=== PATIENT | male | born 1960 | race Caucasian/White ===

== ENCOUNTER 2017-07-04 14:56 | Emergency (ER) | payer OTHER, BC ==
[~2017-07-04] VITALS: Ht 195.6 cm; Wt 130.6 kg
[~2017-07-04 14:56] MED LIST: CLOP75 PO; ENOX30I SQ; GLIP2.5ER PO; GLIP5 PO; Janumet 50-5001 EACH; LOSA25; METF500 PO; PRAV20 PO; Sotalol80 MG; WARF10 PO
[2017-07-04] MEDS ORDERED: XARELTO15 MG PO (18:28)
== END 2017-07-04 18:43 | disposition home or self-care (01) ==
LOC: ER 14:56
DX: I82.4Z1 Acute embolism and thrombosis of unspecified deep veins of right distal lower extremity (principal); E11.9 Type 2 diabetes mellitus without complications; Z79.899 Other long term (current) drug therapy; Z79.84 Long term (current) use of oral hypoglycemic drugs
CPT/HCPCS: 93971; 99284

== ENCOUNTER 2018-12-16 07:30 | Day surgery (SDC) | payer BC ==
[~2018-12-16 07:30] MED LIST changes: +D3-20002000 UNIT PO; +FISH OIL 1,4001 EACH PO; +GLIP10ER PO; +Hydrocodone-Ap1 EA20 PO; +JARDIANCE25 MG PO; +Janumet 50-1,01 EACH PO; +LOSARTAN POTAS100 MG PO; +Mobic15 MG PO; +PRAV20; +SOTALOL PO; +XARELTO15 MG PO
== END 2018-12-16 23:03 | disposition home or self-care (01) ==
LOC: WOUND 07:30
DX: E11.622 Type 2 diabetes mellitus with other skin ulcer (principal); L97.811 Non-pressure chronic ulcer of other part of right lower leg limited to breakdown of skin; L97.822 Non-pressure chronic ulcer of other part of left lower leg with fat layer exposed; Z79.84 Long term (current) use of oral hypoglycemic drugs
CPT/HCPCS: 87070; 87075; 87205; G0463

== ENCOUNTER 2018-12-23 00:22 | Day surgery (SDC) | payer BC | END 2018-12-23 23:07 | disposition home or self-care (01) | LOC: WOUND 00:22 | DX: L97.811 Non-pressure chronic ulcer of other part of right lower leg limited to breakdown of skin (principal); L97.822 Non-pressure chronic ulcer of other part of left lower leg with fat layer exposed | CPT/HCPCS: G0463 ==

== ENCOUNTER 2018-12-30 09:29 | Day surgery (SDC) | payer BC | END 2018-12-30 23:13 | disposition home or self-care (01) | LOC: WOUND 09:29 | DX: E11.622 Type 2 diabetes mellitus with other skin ulcer (principal); L97.811 Non-pressure chronic ulcer of other part of right lower leg limited to breakdown of skin; Z79.84 Long term (current) use of oral hypoglycemic drugs ==

== ENCOUNTER 2019-01-12 15:22 | Day surgery (SDC) | payer BC | END 2019-01-12 23:00 | disposition home or self-care (01) | LOC: WOUND 15:22 | DX: E11.622 Type 2 diabetes mellitus with other skin ulcer (principal); L97.812 Non-pressure chronic ulcer of other part of right lower leg with fat layer exposed; E11.40 Type 2 diabetes mellitus with diabetic neuropathy, unspecified; I48.91 Unspecified atrial fibrillation; G47.30 Sleep apnea, unspecified; I50.9 Heart failure, unspecified; I25.10 Atherosclerotic heart disease of native coronary artery without angina pectoris; I25.2 Old myocardial infarction; M10.9 Gout, unspecified; L93.0 Discoid lupus erythematosus; Z86.718 Personal history of other venous thrombosis and embolism; Z79.01 Long term (current) use of anticoagulants; Z79.84 Long term (current) use of oral hypoglycemic drugs | CPT/HCPCS: G0463 ==

== ENCOUNTER 2019-01-26 15:28 | Day surgery (SDC) | payer BC | END 2019-01-26 22:46 | disposition home or self-care (01) | LOC: WOUND 15:28 | DX: Z09 Encounter for follow-up examination after completed treatment for conditions other than malignant neoplasm (principal); Z87.2 Personal history of diseases of the skin and subcutaneous tissue; E11.9 Type 2 diabetes mellitus without complications; Z79.84 Long term (current) use of oral hypoglycemic drugs | CPT/HCPCS: G0463 ==

== ENCOUNTER 2019-07-28 00:18 | Day surgery (SDC) | payer BC | END 2019-07-28 23:09 | disposition home or self-care (01) | LOC: WOUND 00:18 | DX: E11.621 Type 2 diabetes mellitus with foot ulcer (principal); L97.522 Non-pressure chronic ulcer of other part of left foot with fat layer exposed; E78.5 Hyperlipidemia, unspecified; E11.40 Type 2 diabetes mellitus with diabetic neuropathy, unspecified; I50.9 Heart failure, unspecified; Z79.899 Other long term (current) drug therapy; Z79.84 Long term (current) use of oral hypoglycemic drugs | CPT/HCPCS: G0463 ==

== ENCOUNTER 2019-08-05 00:13 | Day surgery (SDC) | payer BC | END 2019-08-05 22:51 | disposition home or self-care (01) | LOC: WOUND 00:13 | DX: E11.621 Type 2 diabetes mellitus with foot ulcer (principal); L97.522 Non-pressure chronic ulcer of other part of left foot with fat layer exposed; I48.91 Unspecified atrial fibrillation; Z86.718 Personal history of other venous thrombosis and embolism ==

== ENCOUNTER 2019-08-11 00:12 | Day surgery (SDC) | payer BC | END 2019-08-11 22:42 | disposition home or self-care (01) | LOC: WOUND 00:12 | DX: E11.621 Type 2 diabetes mellitus with foot ulcer (principal); L97.522 Non-pressure chronic ulcer of other part of left foot with fat layer exposed; Z79.84 Long term (current) use of oral hypoglycemic drugs ==

== ENCOUNTER 2019-08-19 00:33 | Day surgery (SDC) | payer BC | END 2019-08-19 23:11 | disposition home or self-care (01) | LOC: WOUND 00:33 | DX: E11.621 Type 2 diabetes mellitus with foot ulcer (principal); L97.522 Non-pressure chronic ulcer of other part of left foot with fat layer exposed; I48.91 Unspecified atrial fibrillation; Z86.718 Personal history of other venous thrombosis and embolism ==

== ENCOUNTER 2019-09-23 00:02 | Day surgery (SDC) | payer BC | END 2019-09-23 22:37 | disposition home or self-care (01) | LOC: WOUND 00:02 | DX: E11.621 Type 2 diabetes mellitus with foot ulcer (principal); L97.522 Non-pressure chronic ulcer of other part of left foot with fat layer exposed; I48.91 Unspecified atrial fibrillation; Z86.718 Personal history of other venous thrombosis and embolism ==

== ENCOUNTER 2019-10-06 00:20 | Day surgery (SDC) | payer BC | END 2019-10-06 22:34 | disposition home or self-care (01) | LOC: WOUND 00:20 | DX: E11.621 Type 2 diabetes mellitus with foot ulcer (principal); L97.522 Non-pressure chronic ulcer of other part of left foot with fat layer exposed; Z79.84 Long term (current) use of oral hypoglycemic drugs ==

== ENCOUNTER 2019-10-14 00:16 | Day surgery (SDC) | payer BC | END 2019-10-14 22:34 | disposition home or self-care (01) | LOC: WOUND 00:16 | DX: E11.621 Type 2 diabetes mellitus with foot ulcer (principal); L97.522 Non-pressure chronic ulcer of other part of left foot with fat layer exposed ==

== ENCOUNTER 2019-10-18 00:40 | Day surgery (SDC) | payer BC | END 2019-10-18 22:35 | disposition home or self-care (01) | LOC: WOUND 00:40 | DX: E11.621 Type 2 diabetes mellitus with foot ulcer (principal); L97.522 Non-pressure chronic ulcer of other part of left foot with fat layer exposed; Z79.84 Long term (current) use of oral hypoglycemic drugs | CPT/HCPCS: G0463 ==

== ENCOUNTER 2019-11-07 00:19 | Day surgery (SDC) | payer BC | END 2019-11-07 22:45 | disposition home or self-care (01) | LOC: WOUND 00:19 | DX: E11.621 Type 2 diabetes mellitus with foot ulcer (principal); L97.522 Non-pressure chronic ulcer of other part of left foot with fat layer exposed; Z79.84 Long term (current) use of oral hypoglycemic drugs | CPT/HCPCS: G0463 ==

== ENCOUNTER 2019-12-09 01:12 | Day surgery (SDC) | payer BC | END 2019-12-09 22:52 | disposition home or self-care (01) | LOC: WOUND 01:12 | DX: E11.621 Type 2 diabetes mellitus with foot ulcer (principal); L97.522 Non-pressure chronic ulcer of other part of left foot with fat layer exposed; Z79.84 Long term (current) use of oral hypoglycemic drugs ==

== ENCOUNTER 2019-12-15 08:42 | Day surgery (SDC) | payer BC | END 2019-12-15 23:33 | disposition home or self-care (01) | LOC: WOUND 08:42 | DX: E11.621 Type 2 diabetes mellitus with foot ulcer (principal); L97.522 Non-pressure chronic ulcer of other part of left foot with fat layer exposed; E11.52 Type 2 diabetes mellitus with diabetic peripheral angiopathy with gangrene; I96 Gangrene, not elsewhere classified; I48.91 Unspecified atrial fibrillation; Z86.718 Personal history of other venous thrombosis and embolism; Z79.84 Long term (current) use of oral hypoglycemic drugs; Z79.1 Long term (current) use of non-steroidal anti-inflammatories (NSAID); Z79.899 Other long term (current) drug therapy ==

== ENCOUNTER 2019-12-22 08:43 | Day surgery (SDC) | payer BC | END 2019-12-22 23:10 | disposition home or self-care (01) | LOC: WOUND 08:43 | DX: E11.621 Type 2 diabetes mellitus with foot ulcer (principal); L97.522 Non-pressure chronic ulcer of other part of left foot with fat layer exposed; Z79.84 Long term (current) use of oral hypoglycemic drugs ==

== ENCOUNTER 2019-12-30 00:40 | Day surgery (SDC) | payer BC | END 2019-12-30 23:57 | disposition home or self-care (01) | LOC: WOUND 00:40 | DX: E11.621 Type 2 diabetes mellitus with foot ulcer (principal); L97.521 Non-pressure chronic ulcer of other part of left foot limited to breakdown of skin; E11.52 Type 2 diabetes mellitus with diabetic peripheral angiopathy with gangrene; I96 Gangrene, not elsewhere classified; E11.40 Type 2 diabetes mellitus with diabetic neuropathy, unspecified; I48.91 Unspecified atrial fibrillation; G47.30 Sleep apnea, unspecified; I49.9 Cardiac arrhythmia, unspecified; I50.9 Heart failure, unspecified; I25.10 Atherosclerotic heart disease of native coronary artery without angina pectoris; I25.2 Old myocardial infarction; M32.9 Systemic lupus erythematosus, unspecified; M10.9 Gout, unspecified; Z86.718 Personal history of other venous thrombosis and embolism; Z79.84 Long term (current) use of oral hypoglycemic drugs; Z79.899 Other long term (current) drug therapy ==

== ENCOUNTER 2020-01-20 01:06 | Day surgery (SDC) | payer BC | END 2020-01-20 23:12 | disposition home or self-care (01) | LOC: WOUND 01:06 | DX: E11.621 Type 2 diabetes mellitus with foot ulcer (principal); L97.522 Non-pressure chronic ulcer of other part of left foot with fat layer exposed; Z79.84 Long term (current) use of oral hypoglycemic drugs ==

== ENCOUNTER 2020-02-08 01:27 | Day surgery (SDC) | payer BC | END 2020-02-08 22:58 | disposition home or self-care (01) | LOC: WOUND 01:27 | DX: E11.621 Type 2 diabetes mellitus with foot ulcer (principal); L97.422 Non-pressure chronic ulcer of left heel and midfoot with fat layer exposed; L97.529 Non-pressure chronic ulcer of other part of left foot with unspecified severity; E11.52 Type 2 diabetes mellitus with diabetic peripheral angiopathy with gangrene; S90.425D Blister (nonthermal), left lesser toe(s), subsequent encounter; I96 Gangrene, not elsewhere classified; I48.91 Unspecified atrial fibrillation; Z79.84 Long term (current) use of oral hypoglycemic drugs; Z79.1 Long term (current) use of non-steroidal anti-inflammatories (NSAID); Z79.899 Other long term (current) drug therapy; Z86.718 Personal history of other venous thrombosis and embolism; X58.XXXD Exposure to other specified factors, subsequent encounter ==

== ENCOUNTER 2020-02-15 00:45 | Day surgery (SDC) | payer BC | END 2020-02-15 22:39 | disposition home or self-care (01) | LOC: WOUND 00:45 | DX: E11.621 Type 2 diabetes mellitus with foot ulcer (principal); L97.522 Non-pressure chronic ulcer of other part of left foot with fat layer exposed; S91.102D Unspecified open wound of left great toe without damage to nail, subsequent encounter; S91.105D Unspecified open wound of left lesser toe(s) without damage to nail, subsequent encounter; I48.91 Unspecified atrial fibrillation; Z86.718 Personal history of other venous thrombosis and embolism; X58.XXXD Exposure to other specified factors, subsequent encounter ==

== ENCOUNTER 2020-03-15 00:26 | Day surgery (SDC) | payer BC | END 2020-03-15 23:45 | disposition home or self-care (01) | LOC: WOUND 00:26 | DX: E11.621 Type 2 diabetes mellitus with foot ulcer (principal); L97.522 Non-pressure chronic ulcer of other part of left foot with fat layer exposed; I48.91 Unspecified atrial fibrillation; S91.105D Unspecified open wound of left lesser toe(s) without damage to nail, subsequent encounter; Z86.718 Personal history of other venous thrombosis and embolism; X58.XXXD Exposure to other specified factors, subsequent encounter | CPT/HCPCS: A9270 ==

== ENCOUNTER 2020-04-05 08:53 | Day surgery (SDC) | payer BC | END 2020-04-05 23:43 | disposition home or self-care (01) | LOC: WOUND 08:53 | DX: E11.621 Type 2 diabetes mellitus with foot ulcer (principal); E11.622 Type 2 diabetes mellitus with other skin ulcer; L97.522 Non-pressure chronic ulcer of other part of left foot with fat layer exposed; L97.912 Non-pressure chronic ulcer of unspecified part of right lower leg with fat layer exposed; I48.91 Unspecified atrial fibrillation | CPT/HCPCS: A9270 ==

== ENCOUNTER 2020-04-19 00:28 | Day surgery (SDC) | payer BC | END 2020-04-19 22:54 | disposition home or self-care (01) | LOC: WOUND 00:28 | DX: E11.621 Type 2 diabetes mellitus with foot ulcer (principal); L97.522 Non-pressure chronic ulcer of other part of left foot with fat layer exposed; L97.911 Non-pressure chronic ulcer of unspecified part of right lower leg limited to breakdown of skin; S91.105D Unspecified open wound of left lesser toe(s) without damage to nail, subsequent encounter; I48.91 Unspecified atrial fibrillation; Z86.718 Personal history of other venous thrombosis and embolism; X58.XXXD Exposure to other specified factors, subsequent encounter | CPT/HCPCS: A9270 ==

== ENCOUNTER 2020-05-03 00:23 | Day surgery (SDC) | payer BC | END 2020-05-03 23:31 | disposition home or self-care (01) | LOC: WOUND 00:23 | DX: E11.621 Type 2 diabetes mellitus with foot ulcer (principal); L97.522 Non-pressure chronic ulcer of other part of left foot with fat layer exposed; E11.622 Type 2 diabetes mellitus with other skin ulcer; L97.911 Non-pressure chronic ulcer of unspecified part of right lower leg limited to breakdown of skin; S91.105D Unspecified open wound of left lesser toe(s) without damage to nail, subsequent encounter; X58.XXXD Exposure to other specified factors, subsequent encounter | CPT/HCPCS: A9270 ==

== ENCOUNTER 2020-05-17 00:25 | Day surgery (SDC) | payer BC | END 2020-05-17 22:52 | disposition home or self-care (01) | LOC: WOUND 00:25 | DX: E11.621 Type 2 diabetes mellitus with foot ulcer (principal); L97.522 Non-pressure chronic ulcer of other part of left foot with fat layer exposed; L97.911 Non-pressure chronic ulcer of unspecified part of right lower leg limited to breakdown of skin; S91.105D Unspecified open wound of left lesser toe(s) without damage to nail, subsequent encounter; X58.XXXD Exposure to other specified factors, subsequent encounter | CPT/HCPCS: A9270 ==

== ENCOUNTER 2020-05-31 00:35 | Day surgery (SDC) | payer BC | END 2020-05-31 23:14 | disposition home or self-care (01) | LOC: WOUND 00:35 | DX: E11.621 Type 2 diabetes mellitus with foot ulcer (principal); L97.522 Non-pressure chronic ulcer of other part of left foot with fat layer exposed; L97.911 Non-pressure chronic ulcer of unspecified part of right lower leg limited to breakdown of skin; S91.105D Unspecified open wound of left lesser toe(s) without damage to nail, subsequent encounter; X58.XXXD Exposure to other specified factors, subsequent encounter; I48.91 Unspecified atrial fibrillation; Z86.718 Personal history of other venous thrombosis and embolism | CPT/HCPCS: 87071; 87075; 87077; 87147; 87186; 87205; A9270 ==

== ENCOUNTER 2020-06-12 01:27 | Day surgery (SDC) | payer BC | END 2020-06-12 22:39 | disposition home or self-care (01) | LOC: WOUND 01:27 | DX: E11.621 Type 2 diabetes mellitus with foot ulcer (principal); L97.522 Non-pressure chronic ulcer of other part of left foot with fat layer exposed; L97.811 Non-pressure chronic ulcer of other part of right lower leg limited to breakdown of skin; S91.105D Unspecified open wound of left lesser toe(s) without damage to nail, subsequent encounter; X58.XXXD Exposure to other specified factors, subsequent encounter | CPT/HCPCS: A9270 ==

== ENCOUNTER 2020-06-14 01:57 | Day surgery (SDC) | payer BC | END 2020-06-14 22:58 | disposition home or self-care (01) | LOC: WOUND 01:57 | DX: E11.621 Type 2 diabetes mellitus with foot ulcer (principal); L97.522 Non-pressure chronic ulcer of other part of left foot with fat layer exposed; I48.91 Unspecified atrial fibrillation; Z86.718 Personal history of other venous thrombosis and embolism ==

== ENCOUNTER 2020-06-21 00:20 | Day surgery (SDC) | payer BC | END 2020-06-21 22:38 | disposition home or self-care (01) | LOC: WOUND 00:20 | DX: E11.621 Type 2 diabetes mellitus with foot ulcer (principal); L97.522 Non-pressure chronic ulcer of other part of left foot with fat layer exposed; L97.911 Non-pressure chronic ulcer of unspecified part of right lower leg limited to breakdown of skin; S91.105D Unspecified open wound of left lesser toe(s) without damage to nail, subsequent encounter; X58.XXXD Exposure to other specified factors, subsequent encounter; I48.91 Unspecified atrial fibrillation; Z86.718 Personal history of other venous thrombosis and embolism | CPT/HCPCS: A9270 ==

== ENCOUNTER 2020-06-27 03:34 | Day surgery (SDC) | payer BC | END 2020-06-27 22:41 | disposition home or self-care (01) | LOC: WOUND 03:34 | DX: E11.621 Type 2 diabetes mellitus with foot ulcer (principal); L97.522 Non-pressure chronic ulcer of other part of left foot with fat layer exposed; L97.911 Non-pressure chronic ulcer of unspecified part of right lower leg limited to breakdown of skin; S91.105D Unspecified open wound of left lesser toe(s) without damage to nail, subsequent encounter; X58.XXXD Exposure to other specified factors, subsequent encounter; I48.91 Unspecified atrial fibrillation; Z86.718 Personal history of other venous thrombosis and embolism | CPT/HCPCS: A9270 ==

== ENCOUNTER 2020-07-04 03:18 | Day surgery (SDC) | payer BC | END 2020-07-04 23:18 | disposition home or self-care (01) | LOC: WOUND 03:18 | DX: E11.621 Type 2 diabetes mellitus with foot ulcer (principal); L97.521 Non-pressure chronic ulcer of other part of left foot limited to breakdown of skin; L84 Corns and callosities; I48.91 Unspecified atrial fibrillation; Z86.718 Personal history of other venous thrombosis and embolism | CPT/HCPCS: A9270 ==

== ENCOUNTER 2020-07-06 08:52 | Day surgery (SDC) | payer BC | END 2020-07-06 23:07 | disposition home or self-care (01) | LOC: WOUND 08:52 | DX: E11.621 Type 2 diabetes mellitus with foot ulcer (principal); L97.421 Non-pressure chronic ulcer of left heel and midfoot limited to breakdown of skin; L97.521 Non-pressure chronic ulcer of other part of left foot limited to breakdown of skin; I48.91 Unspecified atrial fibrillation; Z86.718 Personal history of other venous thrombosis and embolism | CPT/HCPCS: A9270 ==

== ENCOUNTER 2020-07-11 08:00 | Day surgery (SDC) | payer BC | END 2020-07-11 23:59 | disposition home or self-care (01) | LOC: WOUND 08:00 | DX: E11.621 Type 2 diabetes mellitus with foot ulcer (principal); L97.522 Non-pressure chronic ulcer of other part of left foot with fat layer exposed; I48.91 Unspecified atrial fibrillation; Z86.718 Personal history of other venous thrombosis and embolism | CPT/HCPCS: A9270 ==

== ENCOUNTER 2020-07-13 11:18 | Day surgery (SDC) | payer BC | END 2020-07-13 22:40 | disposition home or self-care (01) | LOC: WOUND 11:18 | DX: E11.621 Type 2 diabetes mellitus with foot ulcer (principal); L97.522 Non-pressure chronic ulcer of other part of left foot with fat layer exposed | CPT/HCPCS: A9270; G0463 ==

== ENCOUNTER 2020-07-18 02:16 | Day surgery (SDC) | payer BC | END 2020-07-18 23:48 | disposition home or self-care (01) | LOC: WOUND 02:16 | DX: E11.621 Type 2 diabetes mellitus with foot ulcer (principal); L97.522 Non-pressure chronic ulcer of other part of left foot with fat layer exposed; I48.91 Unspecified atrial fibrillation; Z86.718 Personal history of other venous thrombosis and embolism | CPT/HCPCS: A9270; G0463 ==

== ENCOUNTER 2020-07-25 04:30 | Day surgery (SDC) | payer BC | END 2020-07-25 22:43 | disposition home or self-care (01) | LOC: WOUND 04:30 | DX: E11.621 Type 2 diabetes mellitus with foot ulcer (principal); L97.522 Non-pressure chronic ulcer of other part of left foot with fat layer exposed; I48.91 Unspecified atrial fibrillation; Z86.718 Personal history of other venous thrombosis and embolism | CPT/HCPCS: G0463 ==

== ENCOUNTER 2020-08-01 04:23 | Day surgery (SDC) | payer BC | END 2020-08-01 23:00 | disposition home or self-care (01) | LOC: WOUND 04:23 | DX: E11.621 Type 2 diabetes mellitus with foot ulcer (principal); L97.522 Non-pressure chronic ulcer of other part of left foot with fat layer exposed; I48.91 Unspecified atrial fibrillation; Z86.718 Personal history of other venous thrombosis and embolism | CPT/HCPCS: A9270; G0463 ==

== ENCOUNTER 2020-08-27 01:35 | Day surgery (SDC) | payer BC | END 2020-08-27 22:52 | disposition home or self-care (01) | LOC: WOUND 01:35 | DX: E11.621 Type 2 diabetes mellitus with foot ulcer (principal); L97.522 Non-pressure chronic ulcer of other part of left foot with fat layer exposed; I48.91 Unspecified atrial fibrillation; Z86.718 Personal history of other venous thrombosis and embolism | CPT/HCPCS: A9270 ==

== ENCOUNTER 2020-09-04 07:35 | Day surgery (SDC) | payer BC | END 2020-09-05 22:41 | disposition home or self-care (01) | LOC: WOUND 07:35 | DX: E11.621 Type 2 diabetes mellitus with foot ulcer (principal); L97.522 Non-pressure chronic ulcer of other part of left foot with fat layer exposed; L97.422 Non-pressure chronic ulcer of left heel and midfoot with fat layer exposed; L97.412 Non-pressure chronic ulcer of right heel and midfoot with fat layer exposed | CPT/HCPCS: A9270; G0463 ==

== ENCOUNTER 2020-09-11 05:27 | Day surgery (SDC) | payer BC | END 2020-09-11 22:47 | disposition home or self-care (01) | LOC: WOUND 05:27 | DX: E11.621 Type 2 diabetes mellitus with foot ulcer (principal); L97.522 Non-pressure chronic ulcer of other part of left foot with fat layer exposed; L97.412 Non-pressure chronic ulcer of right heel and midfoot with fat layer exposed ==

== ENCOUNTER 2020-09-25 02:20 | Day surgery (SDC) | payer BC | END 2020-09-25 23:00 | disposition home or self-care (01) | LOC: WOUND 02:20 | DX: L97.522 Non-pressure chronic ulcer of other part of left foot with fat layer exposed (principal) | CPT/HCPCS: A9270 ==

== ENCOUNTER 2020-10-03 00:36 | Day surgery (SDC) | payer BC | END 2020-10-03 23:07 | disposition home or self-care (01) | LOC: WOUND 00:36 | DX: E11.621 Type 2 diabetes mellitus with foot ulcer (principal); L97.522 Non-pressure chronic ulcer of other part of left foot with fat layer exposed | CPT/HCPCS: A9270; G0463 ==

== ENCOUNTER 2020-10-10 01:21 | Day surgery (SDC) | payer BC | END 2020-10-10 23:01 | disposition home or self-care (01) | LOC: WOUND 01:21 | DX: E11.621 Type 2 diabetes mellitus with foot ulcer (principal); L97.522 Non-pressure chronic ulcer of other part of left foot with fat layer exposed; I48.91 Unspecified atrial fibrillation; Z86.718 Personal history of other venous thrombosis and embolism | CPT/HCPCS: G0463 ==

== ENCOUNTER 2020-10-24 00:56 | Day surgery (SDC) | payer BC | END 2020-10-24 23:57 | disposition home or self-care (01) | LOC: WOUND 00:56 | DX: E11.621 Type 2 diabetes mellitus with foot ulcer (principal); L97.522 Non-pressure chronic ulcer of other part of left foot with fat layer exposed; I48.91 Unspecified atrial fibrillation; Z86.718 Personal history of other venous thrombosis and embolism | CPT/HCPCS: A9270; G0463 ==

== ENCOUNTER 2020-11-07 02:44 | Day surgery (SDC) | payer BC | END 2020-11-07 22:46 | disposition home or self-care (01) | LOC: WOUND 02:44 | DX: E11.621 Type 2 diabetes mellitus with foot ulcer (principal); L97.522 Non-pressure chronic ulcer of other part of left foot with fat layer exposed | CPT/HCPCS: A9270 ==

== ENCOUNTER 2020-11-14 02:09 | Day surgery (SDC) | payer BC | END 2020-11-14 23:01 | disposition home or self-care (01) | LOC: WOUND 02:09 | DX: E11.621 Type 2 diabetes mellitus with foot ulcer (principal); L97.522 Non-pressure chronic ulcer of other part of left foot with fat layer exposed; I48.91 Unspecified atrial fibrillation; Z86.718 Personal history of other venous thrombosis and embolism | CPT/HCPCS: A9270; G0463 ==

== ENCOUNTER 2020-11-28 04:45 | Day surgery (SDC) | payer BC | END 2020-11-28 23:55 | disposition home or self-care (01) | LOC: WOUND 04:45 | DX: E11.621 Type 2 diabetes mellitus with foot ulcer (principal); L97.522 Non-pressure chronic ulcer of other part of left foot with fat layer exposed; I48.91 Unspecified atrial fibrillation; Z86.718 Personal history of other venous thrombosis and embolism | CPT/HCPCS: A9270; G0463 ==

== ENCOUNTER 2020-12-05 01:38 | Day surgery (SDC) | payer BC | END 2020-12-05 23:00 | disposition home or self-care (01) | LOC: WOUND 01:38 | DX: E11.621 Type 2 diabetes mellitus with foot ulcer (principal); L97.522 Non-pressure chronic ulcer of other part of left foot with fat layer exposed | CPT/HCPCS: A9270 ==

== ENCOUNTER 2020-12-12 02:40 | Day surgery (SDC) | payer BC | END 2020-12-12 12:00 | disposition home or self-care (01) | LOC: WOUND 02:40 | DX: E11.621 Type 2 diabetes mellitus with foot ulcer (principal); L97.522 Non-pressure chronic ulcer of other part of left foot with fat layer exposed | CPT/HCPCS: A9270 ==

== ENCOUNTER 2021-01-01 05:39 | Day surgery (SDC) | payer BC | END 2021-01-01 22:42 | disposition home or self-care (01) | LOC: WOUND | DX: E11.621 Type 2 diabetes mellitus with foot ulcer (principal); L97.522 Non-pressure chronic ulcer of other part of left foot with fat layer exposed | CPT/HCPCS: A9270 ==

== ENCOUNTER 2021-01-22 01:18 | Day surgery (SDC) | payer BC | END 2021-01-22 23:06 | disposition home or self-care (01) | LOC: WOUND 01:18 | DX: E11.621 Type 2 diabetes mellitus with foot ulcer (principal); L97.525 Non-pressure chronic ulcer of other part of left foot with muscle involvement without evidence of necrosis | CPT/HCPCS: A9270 ==

== ENCOUNTER 2021-02-26 05:53 | Day surgery (SDC) | payer BC | END 2021-02-26 22:37 | disposition home or self-care (01) | LOC: WOUND 05:53 | DX: E11.621 Type 2 diabetes mellitus with foot ulcer (principal); L97.522 Non-pressure chronic ulcer of other part of left foot with fat layer exposed | CPT/HCPCS: A9270 ==

== ENCOUNTER 2021-03-01 05:04 | Day surgery (SDC) | payer BC | END 2021-03-01 12:00 | disposition home or self-care (01) | LOC: WOUND 05:04 | DX: E11.621 Type 2 diabetes mellitus with foot ulcer (principal); L97.522 Non-pressure chronic ulcer of other part of left foot with fat layer exposed; I48.91 Unspecified atrial fibrillation; Z86.718 Personal history of other venous thrombosis and embolism ==

== ENCOUNTER 2021-03-05 04:06 | Day surgery (SDC) | payer BC | END 2021-03-05 23:15 | disposition home or self-care (01) | LOC: WOUND 04:06 | DX: E11.621 Type 2 diabetes mellitus with foot ulcer (principal); L97.522 Non-pressure chronic ulcer of other part of left foot with fat layer exposed | CPT/HCPCS: A9270 ==

== ENCOUNTER 2021-03-12 00:42 | Day surgery (SDC) | payer BC | END 2021-03-12 00:55 | disposition home or self-care (01) | LOC: WOUND 00:42 | DX: E11.621 Type 2 diabetes mellitus with foot ulcer (principal); L97.522 Non-pressure chronic ulcer of other part of left foot with fat layer exposed | CPT/HCPCS: A9270 ==

== ENCOUNTER 2021-03-19 05:13 | Day surgery (SDC) | payer BC | END 2021-03-19 22:35 | disposition home or self-care (01) | LOC: WOUND 05:13 | DX: E11.621 Type 2 diabetes mellitus with foot ulcer (principal); L97.522 Non-pressure chronic ulcer of other part of left foot with fat layer exposed | CPT/HCPCS: A9270 ==

== ENCOUNTER 2021-03-22 09:01 | Day surgery (SDC) | payer BC | END 2021-03-22 12:00 | disposition home or self-care (01) | LOC: WOUND 09:01 | DX: E11.621 Type 2 diabetes mellitus with foot ulcer (principal); L97.522 Non-pressure chronic ulcer of other part of left foot with fat layer exposed | CPT/HCPCS: G0463 ==

== ENCOUNTER 2021-03-26 04:05 | Day surgery (SDC) | payer BC | END 2021-03-26 22:35 | disposition home or self-care (01) | LOC: WOUND 04:05 | DX: E11.621 Type 2 diabetes mellitus with foot ulcer (principal); L97.522 Non-pressure chronic ulcer of other part of left foot with fat layer exposed | CPT/HCPCS: A9270 ==

== ENCOUNTER 2021-04-02 03:50 | Day surgery (SDC) | payer BC | END 2021-04-02 22:40 | disposition home or self-care (01) | LOC: WOUND 03:50 | DX: E11.621 Type 2 diabetes mellitus with foot ulcer (principal); L97.522 Non-pressure chronic ulcer of other part of left foot with fat layer exposed | CPT/HCPCS: G0463 ==

== ENCOUNTER 2021-04-09 00:29 | Day surgery (SDC) | payer BC | END 2021-04-09 22:54 | disposition home or self-care (01) | LOC: WOUND 00:29 | DX: E11.621 Type 2 diabetes mellitus with foot ulcer (principal); L97.522 Non-pressure chronic ulcer of other part of left foot with fat layer exposed | CPT/HCPCS: G0463 ==

== ENCOUNTER 2021-04-16 09:55 | Day surgery (SDC) | payer BC | END 2021-04-16 23:44 | disposition home or self-care (01) | LOC: WOUND 09:55 | DX: E11.621 Type 2 diabetes mellitus with foot ulcer (principal); L97.522 Non-pressure chronic ulcer of other part of left foot with fat layer exposed; L03.032 Cellulitis of left toe | CPT/HCPCS: A9270 ==

== ENCOUNTER 2021-04-19 00:41 | Day surgery (SDC) | payer BC | END 2021-04-19 23:44 | disposition home or self-care (01) | LOC: WOUND 00:41 | DX: E11.621 Type 2 diabetes mellitus with foot ulcer (principal); L97.522 Non-pressure chronic ulcer of other part of left foot with fat layer exposed; L03.032 Cellulitis of left toe; I48.91 Unspecified atrial fibrillation; Z86.718 Personal history of other venous thrombosis and embolism | CPT/HCPCS: G0463 ==

== ENCOUNTER → 2021-07-26 | Outpatient (CLI) | payer BC ==
[~2021-07-26] MED LIST changes: +JANUMET 50-1,01 EACH PO; -Janumet 50-1,01 EACH PO; +TRULICITY0.75 MG/01 SC; +Voltaren100 GM TOP
== END | disposition home or self-care (01) ==
LOC: LAB 12:01 → LAB SHORT 12:01
DX: E11.621 Type 2 diabetes mellitus with foot ulcer (principal); L97.529 Non-pressure chronic ulcer of other part of left foot with unspecified severity; M20.5X2 Other deformities of toe(s) (acquired), left foot; R20.0 Anesthesia of skin
CPT/HCPCS: 87070; 87075; 87077; 87186; 87205

== ENCOUNTER → 2021-07-29 | Outpatient (CLI) | payer BC | END | disposition home or self-care (01) | LOC: LAB SHORT 15:02 → LAB 15:02 | DX: Z48.89 Encounter for other specified surgical aftercare (principal); E11.42 Type 2 diabetes mellitus with diabetic polyneuropathy; E11.621 Type 2 diabetes mellitus with foot ulcer; L97.519 Non-pressure chronic ulcer of other part of right foot with unspecified severity; M20.5X1 Other deformities of toe(s) (acquired), right foot; R20.0 Anesthesia of skin | CPT/HCPCS: 87070; 87077; 87186; 87205 ==

== ENCOUNTER → 2021-09-20 | Outpatient (CLI) | payer BC | END | disposition home or self-care (01) | LOC: LAB SHORT 13:55 → LAB 13:55 | DX: E11.621 Type 2 diabetes mellitus with foot ulcer (principal); L97.519 Non-pressure chronic ulcer of other part of right foot with unspecified severity; M20.5X2 Other deformities of toe(s) (acquired), left foot; R20.0 Anesthesia of skin; R23.8 Other skin changes | CPT/HCPCS: 87070; 87075; 87186; 87205 ==

== ENCOUNTER → 2021-10-21 | Outpatient (CLI) | payer BC | END | disposition home or self-care (01) | LOC: LAB SHORT 12:00 → LAB 12:00 | DX: E11.621 Type 2 diabetes mellitus with foot ulcer (principal); L02.619 Cutaneous abscess of unspecified foot; L97.522 Non-pressure chronic ulcer of other part of left foot with fat layer exposed | CPT/HCPCS: 87070; 87205; 88305; 88311 ==

== ENCOUNTER 2021-11-26 02:43 | Day surgery (SDC) | payer BC | END 2021-11-26 23:05 | disposition home or self-care (01) | LOC: WOUND 02:43 | DX: E11.621 Type 2 diabetes mellitus with foot ulcer (principal); L97.522 Non-pressure chronic ulcer of other part of left foot with fat layer exposed; L97.523 Non-pressure chronic ulcer of other part of left foot with necrosis of muscle; L03.032 Cellulitis of left toe; L03.116 Cellulitis of left lower limb; E11.65 Type 2 diabetes mellitus with hyperglycemia; I25.10 Atherosclerotic heart disease of native coronary artery without angina pectoris; I50.9 Heart failure, unspecified; E78.5 Hyperlipidemia, unspecified | CPT/HCPCS: 87070; 87077; 87186; 87205; A9270; G0463 ==

== ENCOUNTER 2021-12-03 01:37 | Day surgery (SDC) | payer BC | END 2021-12-03 23:10 | disposition home or self-care (01) | LOC: WOUND 01:37 | DX: L03.116 Cellulitis of left lower limb (principal); L97.523 Non-pressure chronic ulcer of other part of left foot with necrosis of muscle; E11.621 Type 2 diabetes mellitus with foot ulcer; E11.65 Type 2 diabetes mellitus with hyperglycemia; E11.51 Type 2 diabetes mellitus with diabetic peripheral angiopathy without gangrene | CPT/HCPCS: A9270 ==

== ENCOUNTER 2021-12-10 02:59 | Day surgery (SDC) | payer BC | END 2021-12-10 23:20 | disposition home or self-care (01) | LOC: WOUND 02:59 | DX: E11.621 Type 2 diabetes mellitus with foot ulcer (principal); L97.523 Non-pressure chronic ulcer of other part of left foot with necrosis of muscle; L03.116 Cellulitis of left lower limb; E11.65 Type 2 diabetes mellitus with hyperglycemia; E11.51 Type 2 diabetes mellitus with diabetic peripheral angiopathy without gangrene | CPT/HCPCS: A9270; Q4133 ==

== ENCOUNTER 2021-12-17 03:56 | Day surgery (SDC) | payer BC | END 2021-12-17 23:02 | disposition home or self-care (01) | LOC: WOUND 03:56 | DX: E11.621 Type 2 diabetes mellitus with foot ulcer (principal); L97.423 Non-pressure chronic ulcer of left heel and midfoot with necrosis of muscle; L03.116 Cellulitis of left lower limb; E11.65 Type 2 diabetes mellitus with hyperglycemia; E11.51 Type 2 diabetes mellitus with diabetic peripheral angiopathy without gangrene | CPT/HCPCS: Q4133 ==

== ENCOUNTER 2021-12-24 08:00 | Day surgery (SDC) | payer BC | END 2021-12-24 23:59 | disposition home or self-care (01) | LOC: WOUND 08:00 | DX: L03.116 Cellulitis of left lower limb (principal); L97.523 Non-pressure chronic ulcer of other part of left foot with necrosis of muscle; E11.65 Type 2 diabetes mellitus with hyperglycemia; E11.621 Type 2 diabetes mellitus with foot ulcer; E11.51 Type 2 diabetes mellitus with diabetic peripheral angiopathy without gangrene | CPT/HCPCS: A9270; G0463 ==

== ENCOUNTER 2022-01-07 00:18 | Day surgery (SDC) | payer BC | END 2022-01-07 22:54 | disposition home or self-care (01) | LOC: WOUND 00:18 | DX: T81.41XA Infection following a procedure, superficial incisional surgical site, initial encounter (principal); L97.523 Non-pressure chronic ulcer of other part of left foot with necrosis of muscle; L03.116 Cellulitis of left lower limb; E11.65 Type 2 diabetes mellitus with hyperglycemia; E11.51 Type 2 diabetes mellitus with diabetic peripheral angiopathy without gangrene; E11.621 Type 2 diabetes mellitus with foot ulcer | CPT/HCPCS: G0463 ==

== ENCOUNTER 2022-01-21 03:00 | Day surgery (SDC) | payer BC | END 2022-01-21 22:58 | disposition home or self-care (01) | LOC: WOUND 03:00 | DX: T81.41XA Infection following a procedure, superficial incisional surgical site, initial encounter (principal); Y84.8 Other medical procedures as the cause of abnormal reaction of the patient, or of later complication, without mention of misadventure at the time of the procedure; L89.523 Pressure ulcer of left ankle, stage 3; L03.116 Cellulitis of left lower limb; E11.65 Type 2 diabetes mellitus with hyperglycemia; E11.51 Type 2 diabetes mellitus with diabetic peripheral angiopathy without gangrene; E11.621 Type 2 diabetes mellitus with foot ulcer | CPT/HCPCS: A9270; G0463 ==

== ENCOUNTER 2022-02-11 01:34 | Day surgery (SDC) | payer BC | END 2022-02-11 22:34 | disposition home or self-care (01) | LOC: WOUND 01:34 | DX: E11.621 Type 2 diabetes mellitus with foot ulcer (principal); L97.523 Non-pressure chronic ulcer of other part of left foot with necrosis of muscle; E11.65 Type 2 diabetes mellitus with hyperglycemia; E11.51 Type 2 diabetes mellitus with diabetic peripheral angiopathy without gangrene | CPT/HCPCS: G0463 ==

== ENCOUNTER 2022-10-17 08:24 | Day surgery (SDC) | payer BC | END 2022-10-17 22:45 | disposition home or self-care (01) | LOC: ATC 08:24 → WOUND 08:24 | DX: E11.621 Type 2 diabetes mellitus with foot ulcer (principal); E11.622 Type 2 diabetes mellitus with other skin ulcer; L97.312 Non-pressure chronic ulcer of right ankle with fat layer exposed; L97.512 Non-pressure chronic ulcer of other part of right foot with fat layer exposed; L97.822 Non-pressure chronic ulcer of other part of left lower leg with fat layer exposed; E11.65 Type 2 diabetes mellitus with hyperglycemia; I87.2 Venous insufficiency (chronic) (peripheral); I48.91 Unspecified atrial fibrillation | CPT/HCPCS: G0463 ==

== ENCOUNTER 2022-10-24 00:44 | Day surgery (SDC) | payer BC | END 2022-10-24 23:09 | disposition home or self-care (01) | LOC: WOUND 00:44 | DX: E11.621 Type 2 diabetes mellitus with foot ulcer (principal); E11.622 Type 2 diabetes mellitus with other skin ulcer; L97.312 Non-pressure chronic ulcer of right ankle with fat layer exposed; L97.522 Non-pressure chronic ulcer of other part of left foot with fat layer exposed; L97.822 Non-pressure chronic ulcer of other part of left lower leg with fat layer exposed; I87.2 Venous insufficiency (chronic) (peripheral); E11.51 Type 2 diabetes mellitus with diabetic peripheral angiopathy without gangrene; E11.65 Type 2 diabetes mellitus with hyperglycemia | CPT/HCPCS: A9270 ==

== ENCOUNTER 2022-11-06 02:56 | Day surgery (SDC) | payer BC | END 2022-11-06 23:02 | disposition home or self-care (01) | LOC: WOUND 02:56 | DX: E11.621 Type 2 diabetes mellitus with foot ulcer (principal); L97.519 Non-pressure chronic ulcer of other part of right foot with unspecified severity; E11.622 Type 2 diabetes mellitus with other skin ulcer; L97.312 Non-pressure chronic ulcer of right ankle with fat layer exposed; L97.829 Non-pressure chronic ulcer of other part of left lower leg with unspecified severity; L97.819 Non-pressure chronic ulcer of other part of right lower leg with unspecified severity; L89.892 Pressure ulcer of other site, stage 2; S91.001D Unspecified open wound, right ankle, subsequent encounter; X58.XXXD Exposure to other specified factors, subsequent encounter; I87.2 Venous insufficiency (chronic) (peripheral); E11.51 Type 2 diabetes mellitus with diabetic peripheral angiopathy without gangrene; E11.65 Type 2 diabetes mellitus with hyperglycemia | CPT/HCPCS: 87070; 87077; 87147; 87186; 87205; G0463 ==

== ENCOUNTER 2022-11-14 00:26 | Day surgery (SDC) | payer BC | END 2022-11-14 22:45 | disposition home or self-care (01) | LOC: WOUND 00:26 | DX: E11.621 Type 2 diabetes mellitus with foot ulcer (principal); E11.622 Type 2 diabetes mellitus with other skin ulcer; S91.001A Unspecified open wound, right ankle, initial encounter; I87.2 Venous insufficiency (chronic) (peripheral); E11.65 Type 2 diabetes mellitus with hyperglycemia; E11.51 Type 2 diabetes mellitus with diabetic peripheral angiopathy without gangrene; L97.512 Non-pressure chronic ulcer of other part of right foot with fat layer exposed; L97.312 Non-pressure chronic ulcer of right ankle with fat layer exposed; L97.829 Non-pressure chronic ulcer of other part of left lower leg with unspecified severity | CPT/HCPCS: G0463 ==

== ENCOUNTER 2022-11-21 02:24 | Day surgery (SDC) | payer BC | END 2022-11-21 22:42 | disposition home or self-care (01) | LOC: WOUND 02:24 | DX: E11.622 Type 2 diabetes mellitus with other skin ulcer (principal); L97.312 Non-pressure chronic ulcer of right ankle with fat layer exposed; E11.621 Type 2 diabetes mellitus with foot ulcer; L97.519 Non-pressure chronic ulcer of other part of right foot with unspecified severity; L97.829 Non-pressure chronic ulcer of other part of left lower leg with unspecified severity; L97.512 Non-pressure chronic ulcer of other part of right foot with fat layer exposed; S91.001A Unspecified open wound, right ankle, initial encounter; I87.2 Venous insufficiency (chronic) (peripheral); E11.65 Type 2 diabetes mellitus with hyperglycemia; E11.51 Type 2 diabetes mellitus with diabetic peripheral angiopathy without gangrene ==

== ENCOUNTER 2022-11-28 05:06 | Day surgery (SDC) | payer BC | END 2022-11-28 22:37 | disposition home or self-care (01) | LOC: WOUND 05:06 | DX: E11.621 Type 2 diabetes mellitus with foot ulcer (principal); E11.622 Type 2 diabetes mellitus with other skin ulcer; L97.519 Non-pressure chronic ulcer of other part of right foot with unspecified severity; I48.91 Unspecified atrial fibrillation; L97.829 Non-pressure chronic ulcer of other part of left lower leg with unspecified severity; L89.892 Pressure ulcer of other site, stage 2; E11.65 Type 2 diabetes mellitus with hyperglycemia; E11.51 Type 2 diabetes mellitus with diabetic peripheral angiopathy without gangrene; I87.2 Venous insufficiency (chronic) (peripheral) ==

== ENCOUNTER 2022-12-04 03:15 | Day surgery (SDC) | payer BC | END 2022-12-04 22:33 | disposition home or self-care (01) | LOC: WOUND 03:15 | PROC: 0HBMXZZ Excision of Right Foot Skin, External Approach (ICD-10-PCS; principal; 2022-12-04) | DX: E11.51 Type 2 diabetes mellitus with diabetic peripheral angiopathy without gangrene (principal); L98.492 Non-pressure chronic ulcer of skin of other sites with fat layer exposed; I70.25 Atherosclerosis of native arteries of other extremities with ulceration; L97.829 Non-pressure chronic ulcer of other part of left lower leg with unspecified severity; I70.248 Atherosclerosis of native arteries of left leg with ulceration of other part of lower leg; I87.2 Venous insufficiency (chronic) (peripheral); S91.001A Unspecified open wound, right ankle, initial encounter | CPT/HCPCS: G0463 ==

== ENCOUNTER 2022-12-12 04:49 | Day surgery (SDC) | payer BC | END 2022-12-12 22:48 | disposition home or self-care (01) | LOC: WOUND 04:49 | DX: E11.622 Type 2 diabetes mellitus with other skin ulcer (principal); L97.512 Non-pressure chronic ulcer of other part of right foot with fat layer exposed; L97.829 Non-pressure chronic ulcer of other part of left lower leg with unspecified severity; L97.312 Non-pressure chronic ulcer of right ankle with fat layer exposed; S91.001A Unspecified open wound, right ankle, initial encounter; X58.XXXD Exposure to other specified factors, subsequent encounter; I87.2 Venous insufficiency (chronic) (peripheral); E11.65 Type 2 diabetes mellitus with hyperglycemia; E11.51 Type 2 diabetes mellitus with diabetic peripheral angiopathy without gangrene; I48.91 Unspecified atrial fibrillation | CPT/HCPCS: A9270; G0463 ==

== ENCOUNTER 2022-12-18 04:54 | Day surgery (SDC) | payer BC | END 2022-12-18 22:46 | disposition home or self-care (01) | LOC: WOUND 04:54 | DX: L89.890 Pressure ulcer of other site, unstageable (principal); E11.622 Type 2 diabetes mellitus with other skin ulcer; L97.312 Non-pressure chronic ulcer of right ankle with fat layer exposed; L97.829 Non-pressure chronic ulcer of other part of left lower leg with unspecified severity; E11.621 Type 2 diabetes mellitus with foot ulcer; S91.001A Unspecified open wound, right ankle, initial encounter; X58.XXXA Exposure to other specified factors, initial encounter; I87.2 Venous insufficiency (chronic) (peripheral); E11.65 Type 2 diabetes mellitus with hyperglycemia; E11.51 Type 2 diabetes mellitus with diabetic peripheral angiopathy without gangrene; Z86.718 Personal history of other venous thrombosis and embolism | CPT/HCPCS: 87071; 87075; 87076; 87077; 87185; 87186; 87205; A9270; G0463 ==

== ENCOUNTER 2023-01-12 04:15 | Day surgery (SDC) | payer BC | END 2023-01-12 22:48 | disposition home or self-care (01) | LOC: WOUND 04:15 | DX: E11.622 Type 2 diabetes mellitus with other skin ulcer (principal); L97.312 Non-pressure chronic ulcer of right ankle with fat layer exposed; L89.890 Pressure ulcer of other site, unstageable; T81.31XD Disruption of external operation (surgical) wound, not elsewhere classified, subsequent encounter; E11.621 Type 2 diabetes mellitus with foot ulcer; I87.2 Venous insufficiency (chronic) (peripheral); E11.65 Type 2 diabetes mellitus with hyperglycemia; E11.51 Type 2 diabetes mellitus with diabetic peripheral angiopathy without gangrene; Y83.8 Other surgical procedures as the cause of abnormal reaction of the patient, or of later complication, without mention of misadventure at the time of the procedure | CPT/HCPCS: G0463 ==

== ENCOUNTER 2023-01-26 08:44 | Day surgery (SDC) | payer BC | END 2023-01-26 22:48 | disposition home or self-care (01) | LOC: WOUND 08:44 → HBO 08:44 | DX: E11.621 Type 2 diabetes mellitus with foot ulcer (principal); E11.622 Type 2 diabetes mellitus with other skin ulcer; T86.821 Skin graft (allograft) (autograft) failure; I87.2 Venous insufficiency (chronic) (peripheral); E11.65 Type 2 diabetes mellitus with hyperglycemia; E11.51 Type 2 diabetes mellitus with diabetic peripheral angiopathy without gangrene; S91.001A Unspecified open wound, right ankle, initial encounter; X58.XXXA Exposure to other specified factors, initial encounter | CPT/HCPCS: 82947; G0277 ==

== ENCOUNTER 2023-01-27 00:34 | Day surgery (SDC) | payer BC | END 2023-01-27 22:49 | disposition home or self-care (01) | LOC: HBO 00:34 | DX: T86.821 Skin graft (allograft) (autograft) failure (principal); E11.621 Type 2 diabetes mellitus with foot ulcer; E11.622 Type 2 diabetes mellitus with other skin ulcer; S91.001A Unspecified open wound, right ankle, initial encounter; I87.2 Venous insufficiency (chronic) (peripheral); E11.65 Type 2 diabetes mellitus with hyperglycemia; E11.51 Type 2 diabetes mellitus with diabetic peripheral angiopathy without gangrene; X58.XXXA Exposure to other specified factors, initial encounter | CPT/HCPCS: 82947; G0277 ==

== ENCOUNTER 2023-01-28 01:48 | Day surgery (SDC) | payer BC | END 2023-01-28 22:44 | disposition home or self-care (01) | LOC: HBO 01:48 | DX: T86.821 Skin graft (allograft) (autograft) failure (principal); E11.621 Type 2 diabetes mellitus with foot ulcer; E11.622 Type 2 diabetes mellitus with other skin ulcer; S91.001A Unspecified open wound, right ankle, initial encounter; I87.2 Venous insufficiency (chronic) (peripheral); E11.65 Type 2 diabetes mellitus with hyperglycemia; E11.51 Type 2 diabetes mellitus with diabetic peripheral angiopathy without gangrene | CPT/HCPCS: 82947; G0277 ==

== ENCOUNTER 2023-01-29 04:53 | Day surgery (SDC) | payer BC | END 2023-01-29 22:54 | disposition home or self-care (01) | LOC: HBO 04:53 | DX: T86.821 Skin graft (allograft) (autograft) failure (principal); S91.001A Unspecified open wound, right ankle, initial encounter; X58.XXXA Exposure to other specified factors, initial encounter; E11.622 Type 2 diabetes mellitus with other skin ulcer; E11.621 Type 2 diabetes mellitus with foot ulcer; I87.2 Venous insufficiency (chronic) (peripheral); E11.65 Type 2 diabetes mellitus with hyperglycemia; E11.51 Type 2 diabetes mellitus with diabetic peripheral angiopathy without gangrene | CPT/HCPCS: 82947; G0277 ==

== ENCOUNTER 2023-01-30 03:11 | Day surgery (SDC) | payer BC | END 2023-01-30 23:47 | disposition home or self-care (01) | LOC: HBO 03:11 | DX: T86.821 Skin graft (allograft) (autograft) failure (principal); E11.621 Type 2 diabetes mellitus with foot ulcer; E11.622 Type 2 diabetes mellitus with other skin ulcer; S91.001A Unspecified open wound, right ankle, initial encounter; I87.2 Venous insufficiency (chronic) (peripheral); E11.65 Type 2 diabetes mellitus with hyperglycemia; E11.51 Type 2 diabetes mellitus with diabetic peripheral angiopathy without gangrene | CPT/HCPCS: 82947; G0277 ==

== ENCOUNTER 2023-02-11 02:27 | Day surgery (SDC) | payer BC | END 2023-02-11 22:39 | disposition home or self-care (01) | LOC: HBO 02:27 | DX: T86.821 Skin graft (allograft) (autograft) failure (principal); E11.621 Type 2 diabetes mellitus with foot ulcer; E11.622 Type 2 diabetes mellitus with other skin ulcer; I87.2 Venous insufficiency (chronic) (peripheral); E11.65 Type 2 diabetes mellitus with hyperglycemia; E11.51 Type 2 diabetes mellitus with diabetic peripheral angiopathy without gangrene; S91.011D Laceration without foreign body, right ankle, subsequent encounter; X58.XXXD Exposure to other specified factors, subsequent encounter | CPT/HCPCS: 82947; G0277 ==

== ENCOUNTER 2023-02-12 04:49 | Day surgery (SDC) | payer BC | END 2023-02-12 22:45 | disposition home or self-care (01) | LOC: HBO 04:49 | DX: T86.821 Skin graft (allograft) (autograft) failure (principal); E11.621 Type 2 diabetes mellitus with foot ulcer; E11.622 Type 2 diabetes mellitus with other skin ulcer; S91.001A Unspecified open wound, right ankle, initial encounter; X58.XXXA Exposure to other specified factors, initial encounter; I87.2 Venous insufficiency (chronic) (peripheral); E11.65 Type 2 diabetes mellitus with hyperglycemia; E11.51 Type 2 diabetes mellitus with diabetic peripheral angiopathy without gangrene | CPT/HCPCS: 82947; G0277 ==

== ENCOUNTER 2023-02-13 02:58 | Day surgery (SDC) | payer BC | END 2023-02-13 22:55 | disposition home or self-care (01) | LOC: HBO 02:58 | DX: T86.821 Skin graft (allograft) (autograft) failure (principal); E11.621 Type 2 diabetes mellitus with foot ulcer; E11.622 Type 2 diabetes mellitus with other skin ulcer; S91.001A Unspecified open wound, right ankle, initial encounter; I87.2 Venous insufficiency (chronic) (peripheral); E11.65 Type 2 diabetes mellitus with hyperglycemia; E11.51 Type 2 diabetes mellitus with diabetic peripheral angiopathy without gangrene | CPT/HCPCS: 82947; G0277 ==

== ENCOUNTER 2023-02-16 04:32 | Day surgery (SDC) | payer BC | END 2023-02-16 22:36 | disposition home or self-care (01) | LOC: HBO 04:32 | DX: T86.821 Skin graft (allograft) (autograft) failure (principal); E11.621 Type 2 diabetes mellitus with foot ulcer; E11.622 Type 2 diabetes mellitus with other skin ulcer; E11.51 Type 2 diabetes mellitus with diabetic peripheral angiopathy without gangrene; E11.65 Type 2 diabetes mellitus with hyperglycemia; S91.001A Unspecified open wound, right ankle, initial encounter; I87.2 Venous insufficiency (chronic) (peripheral) | CPT/HCPCS: 82947; G0277 ==

== ENCOUNTER 2023-02-17 00:27 | Day surgery (SDC) | payer BC | END 2023-02-17 22:39 | disposition home or self-care (01) | LOC: HBO 00:27 | DX: T86.821 Skin graft (allograft) (autograft) failure (principal); E11.621 Type 2 diabetes mellitus with foot ulcer; E11.622 Type 2 diabetes mellitus with other skin ulcer; S91.001A Unspecified open wound, right ankle, initial encounter; I87.2 Venous insufficiency (chronic) (peripheral); E11.65 Type 2 diabetes mellitus with hyperglycemia; E11.51 Type 2 diabetes mellitus with diabetic peripheral angiopathy without gangrene | CPT/HCPCS: 82947; G0277 ==

== ENCOUNTER 2023-02-18 01:42 | Day surgery (SDC) | payer BC | END 2023-02-18 22:45 | disposition home or self-care (01) | LOC: HBO 01:42 | DX: T86.821 Skin graft (allograft) (autograft) failure (principal); E11.621 Type 2 diabetes mellitus with foot ulcer; E11.622 Type 2 diabetes mellitus with other skin ulcer; S91.001A Unspecified open wound, right ankle, initial encounter; I87.2 Venous insufficiency (chronic) (peripheral); E11.65 Type 2 diabetes mellitus with hyperglycemia; E11.51 Type 2 diabetes mellitus with diabetic peripheral angiopathy without gangrene | CPT/HCPCS: 82947; G0277 ==

== ENCOUNTER 2023-02-19 01:24 | Day surgery (SDC) | payer BC | END 2023-02-19 22:47 | disposition home or self-care (01) | LOC: HBO 01:24 | DX: T86.821 Skin graft (allograft) (autograft) failure (principal); E11.621 Type 2 diabetes mellitus with foot ulcer; E11.622 Type 2 diabetes mellitus with other skin ulcer; S91.001D Unspecified open wound, right ankle, subsequent encounter; I87.2 Venous insufficiency (chronic) (peripheral); E11.65 Type 2 diabetes mellitus with hyperglycemia; E11.51 Type 2 diabetes mellitus with diabetic peripheral angiopathy without gangrene; L98.499 Non-pressure chronic ulcer of skin of other sites with unspecified severity | CPT/HCPCS: 82947; G0277 ==

== ENCOUNTER 2023-02-20 02:26 | Day surgery (SDC) | payer BC | END 2023-02-20 22:47 | disposition home or self-care (01) | LOC: HBO 02:26 | DX: T86.821 Skin graft (allograft) (autograft) failure (principal); E11.621 Type 2 diabetes mellitus with foot ulcer; E11.622 Type 2 diabetes mellitus with other skin ulcer; E11.65 Type 2 diabetes mellitus with hyperglycemia; E11.51 Type 2 diabetes mellitus with diabetic peripheral angiopathy without gangrene; I87.2 Venous insufficiency (chronic) (peripheral); S91.001A Unspecified open wound, right ankle, initial encounter; X58.XXXA Exposure to other specified factors, initial encounter | CPT/HCPCS: 82947; G0277 ==

== ENCOUNTER 2023-02-23 03:29 | Day surgery (SDC) | payer BC | END 2023-02-23 22:56 | disposition home or self-care (01) | LOC: HBO 03:29 | DX: T86.821 Skin graft (allograft) (autograft) failure (principal); Y82.8 Other medical devices associated with adverse incidents; S91.001A Unspecified open wound, right ankle, initial encounter; X58.XXXA Exposure to other specified factors, initial encounter; E11.621 Type 2 diabetes mellitus with foot ulcer; E11.622 Type 2 diabetes mellitus with other skin ulcer; I87.2 Venous insufficiency (chronic) (peripheral); E11.65 Type 2 diabetes mellitus with hyperglycemia; E11.51 Type 2 diabetes mellitus with diabetic peripheral angiopathy without gangrene | CPT/HCPCS: 82947; G0277 ==

== ENCOUNTER 2023-02-24 03:50 | Day surgery (SDC) | payer BC | END 2023-02-24 22:42 | disposition home or self-care (01) | LOC: HBO 03:50 | DX: T86.821 Skin graft (allograft) (autograft) failure (principal); E11.621 Type 2 diabetes mellitus with foot ulcer; E11.622 Type 2 diabetes mellitus with other skin ulcer; S91.001A Unspecified open wound, right ankle, initial encounter; I87.2 Venous insufficiency (chronic) (peripheral); E11.65 Type 2 diabetes mellitus with hyperglycemia; E11.51 Type 2 diabetes mellitus with diabetic peripheral angiopathy without gangrene | CPT/HCPCS: 82947; G0277 ==

== ENCOUNTER 2023-02-25 02:40 | Day surgery (SDC) | payer BC | END 2023-02-25 23:15 | disposition home or self-care (01) | LOC: HBO 02:40 | DX: T86.821 Skin graft (allograft) (autograft) failure (principal); E11.51 Type 2 diabetes mellitus with diabetic peripheral angiopathy without gangrene; E11.621 Type 2 diabetes mellitus with foot ulcer; E11.622 Type 2 diabetes mellitus with other skin ulcer; S91.001A Unspecified open wound, right ankle, initial encounter; I87.2 Venous insufficiency (chronic) (peripheral); E11.65 Type 2 diabetes mellitus with hyperglycemia | CPT/HCPCS: 82947; G0277 ==

== ENCOUNTER 2023-02-26 02:00 | Day surgery (SDC) | payer BC | END 2023-02-26 22:52 | disposition home or self-care (01) | LOC: HBO 02:00 | DX: T86.821 Skin graft (allograft) (autograft) failure (principal); I74.3 Embolism and thrombosis of arteries of the lower extremities; E11.621 Type 2 diabetes mellitus with foot ulcer; E11.622 Type 2 diabetes mellitus with other skin ulcer; S91.001A Unspecified open wound, right ankle, initial encounter; I87.2 Venous insufficiency (chronic) (peripheral); E11.65 Type 2 diabetes mellitus with hyperglycemia; E11.51 Type 2 diabetes mellitus with diabetic peripheral angiopathy without gangrene; Y83.2 Surgical operation with anastomosis, bypass or graft as the cause of abnormal reaction of the patient, or of later complication, without mention of misadventure at the time of the procedure | CPT/HCPCS: 82947; G0277 ==

== ENCOUNTER 2023-02-27 01:15 | Day surgery (SDC) | payer BC | END 2023-02-27 22:47 | disposition home or self-care (01) | LOC: WOUND 01:15 | DX: E11.622 Type 2 diabetes mellitus with other skin ulcer (principal); L97.319 Non-pressure chronic ulcer of right ankle with unspecified severity; I48.91 Unspecified atrial fibrillation; T81.31XD Disruption of external operation (surgical) wound, not elsewhere classified, subsequent encounter; T86.821 Skin graft (allograft) (autograft) failure; I74.3 Embolism and thrombosis of arteries of the lower extremities; E11.51 Type 2 diabetes mellitus with diabetic peripheral angiopathy without gangrene; E11.621 Type 2 diabetes mellitus with foot ulcer; E11.65 Type 2 diabetes mellitus with hyperglycemia; I87.2 Venous insufficiency (chronic) (peripheral); Y83.8 Other surgical procedures as the cause of abnormal reaction of the patient, or of later complication, without mention of misadventure at the time of the procedure | CPT/HCPCS: G0463 ==

== ENCOUNTER 2023-02-27 01:16 | Day surgery (SDC) | payer BC | END 2023-02-27 22:48 | disposition home or self-care (01) | LOC: HBO 01:16 | DX: T86.821 Skin graft (allograft) (autograft) failure (principal); I74.3 Embolism and thrombosis of arteries of the lower extremities; E11.621 Type 2 diabetes mellitus with foot ulcer; E11.622 Type 2 diabetes mellitus with other skin ulcer; S91.001A Unspecified open wound, right ankle, initial encounter; I87.2 Venous insufficiency (chronic) (peripheral); E11.65 Type 2 diabetes mellitus with hyperglycemia; E11.51 Type 2 diabetes mellitus with diabetic peripheral angiopathy without gangrene | CPT/HCPCS: 82947; G0277 ==

== ENCOUNTER 2024-10-08 20:41 | Inpatient (IN) | payer OTHER ==
[~2024-10-08] VITALS: Ht 195.6 cm; Wt 115.2 kg
[2024-10-08] MEDS ORDERED: NS 1,000 ML IV SCH ×3 (21:25→23:35)
[2024-10-08] MEDS ORDERED: Morphine Sulfate 4 MG/1 ML Injection IV ONE ×2 (21:35→23:55)
[2024-10-08 21:51] LABS: BASOPHILS ABSOLUTE AUTO 0.08 K/mm3 (0.00-0.23); BASOPHILS PERCENT AUTO 1 % (0-2); EOSINOPHILS ABSOLUTE AUTO 0.09 K/mm3 (0.00-0.68); EOSINOPHILS PERCENT AUTO 1 % (0-6); Hematocrit 41.8 % (37.0-53.0); Hemoglobin 14.4 g/dL (13.5-17.5); IMMATURE GRAN ABSOLUTE AUTO 0.08 K/mm3 (0.00-0.10); IMMATURE GRAN PERCENT AUTO 1 % (0-1); LYMPHOCYTES ABSOLUTE AUTO 1.75 K/mm3 (0.84-5.20); LYMPHOCYTES PERCENT AUTO 21 % (21-46); MONOCYTES ABSOLUTE AUTO 0.71 K/mm3 (0.16-1.47); MONOCYTES PERCENT AUTO 9 % (4-13); Mean Corpuscular HGB Conc 34.4 g/dL (31.5-36.5); Mean Corpuscular Volume 94 fL (80-100); NEUTROPHILS ABSOLUTE AUTO 5.69 K/mm3 (1.96-9.15); NEUTROPHILS PERCENT AUTO 68 % (41-73); NRBC ABSOLUTE 0.00 K/mm3 (0.00-0.02); NRBC Auto 0.0 /100 WBC (0.0-0.2); Platelet Count 197 K/mm3 (150-400); RDW Coefficient Variation 13.7 % (11.7-14.2); RDW Standard Deviation 47.1 fL (35.1-46.3)
[2024-10-08 22:12] LABS: Alanine Aminotransfer (ALT/SGP 22.0 U/L (12-78); Albumin, Blood 3.8 g/dL (3.4-5.0); Albumin/Globulin Ratio 1.3 (0.8-1.8); Anion Gap 16.0 mmol/L (3-11); Aspartate Aminotrans (AST/SGOT 17.0 U/L (12-37); Bilirubin, Total 0.4 mg/dL (0.1-1.0); Blood Urea Nitrogen 34.0 mg/dL (8-24); CO2, Blood 19.0 mmol/L (21-32); Calcium, Blood 9.1 mg/dL (8.5-10.1); Chloride, Blood 100.0 mmol/L (98-108); Creatinine, Blood 1.03 mg/dL (0.60-1.20); Globulin, Blood 2.9 g/dL (2.2-4.0); Glucose, Blood 385.0 mg/dL (70-99); Potassium, Blood 4.3 mmol/L (3.5-5.5); Sodium, Blood 131.0 mmol/L (136-145); Total Protein, Blood 6.7 g/dL (6.4-8.2)
[2024-10-08] MEDS ORDERED: HYDROmorphone HCl/Pf 1MG SYR IV PRN (23:35)
[2024-10-08] MEDS ORDERED: Ondansetron HCl 2 MG / ML 2ML Vial IV PRN (23:35)
[2024-10-08] MEDS ORDERED: FentaNYL Citrate 50 MCG/ML 2 ML Injection IV PRN (23:35)
[2024-10-09] VITALS (18 sets, daily range): BP systolic 90–129; BP diastolic 40–89
[2024-10-09] MEDS ORDERED: Ondansetron HCl 2 MG / ML 2ML Vial ONE ×3 (00:03→16:16)
[2024-10-09] MEDS ORDERED: Ondansetron HCl 2 MG / ML 2ML Vial IV ONE (00:05)
[2024-10-09] MEDS ORDERED: NS 1,000 ML IV ONE (00:40)
[2024-10-09] MEDS ORDERED: Insulin Glargine-Yfgn 100 Unit/mL 3 ML SYR SC SCH ×3 (00:40→09:00)
[2024-10-09] MEDS ORDERED: FentaNYL Citrate 50 MCG/ML 2 ML Injection IV PRN (00:40)
[2024-10-09] MEDS ORDERED: HYDROmorphone HCl/Pf 1MG SYR IV PRN (00:40)
[2024-10-09] MEDS ORDERED: BASAGLAR K100 UNIT/8 (00:56)
[2024-10-09] MEDS ORDERED: SYNJARDY XR 251 EAC1 PO (00:57)
[2024-10-09] MEDS ORDERED: OLMESARTAN MEDO40 MG PO (00:58)
[2024-10-09] MEDS ORDERED: OZEMPIC0.25 MG/02 (00:58)
[2024-10-09] MEDS ORDERED: LOSA50 (01:01)
[2024-10-09] MEDS ORDERED: ASPI325 PO (01:02)
[2024-10-09] MEDS ORDERED: Insulin Glargine-Yfgn 100 Unit/mL 3 ML SYR SC ONE (02:10)
--- NOTE | 2024-10-09 02:11 | NUR ---
0200- [place] [facility] [place]
--- NOTE | 2024-10-09 04:57 | NUR ---
NOC SUMMARY- PT ARRIVED TO ROOM IN NO DISTRESS. PT LEG IN IN A SPLINT. PT HAS BEEN NPO SINCE ARRIVAL TO ROOM @ GA. PT NOT REQUIRED ANY PAIN MANAGEMENT. PT HAS BEEN RESTING COMFORTABLY. PT IS WEARING CPAP WITHOUT ISSUE. CALL LIGHT IN REACH.
[2024-10-09 06:43] LABS: BASOPHILS ABSOLUTE AUTO 0.07 K/mm3 (0.00-0.23); BASOPHILS PERCENT AUTO 1 % (0-2); EOSINOPHILS ABSOLUTE AUTO 0.10 K/mm3 (0.00-0.68); EOSINOPHILS PERCENT AUTO 1 % (0-6); Hematocrit 40.0 % (37.0-53.0); Hemoglobin 13.9 g/dL (13.5-17.5); IMMATURE GRAN ABSOLUTE AUTO 0.08 K/mm3 (0.00-0.10); IMMATURE GRAN PERCENT AUTO 1 % (0-1); LYMPHOCYTES ABSOLUTE AUTO 1.78 K/mm3 (0.84-5.20); LYMPHOCYTES PERCENT AUTO 20 % (21-46); MONOCYTES ABSOLUTE AUTO 1.01 K/mm3 (0.16-1.47); MONOCYTES PERCENT AUTO 11 % (4-13); Mean Corpuscular HGB Conc 34.8 g/dL (31.5-36.5); Mean Corpuscular Volume 95 fL (80-100); NEUTROPHILS ABSOLUTE AUTO 6.07 K/mm3 (1.96-9.15); NEUTROPHILS PERCENT AUTO 67 % (41-73); NRBC ABSOLUTE 0.00 K/mm3 (0.00-0.02); NRBC Auto 0.0 /100 WBC (0.0-0.2); Platelet Count 204 K/mm3 (150-400); RDW Coefficient Variation 14.2 % (11.7-14.2); RDW Standard Deviation 48.0 fL (35.1-46.3)
[2024-10-09 07:09] LABS: Alanine Aminotransfer (ALT/SGP 19.0 U/L (12-78); Albumin, Blood 3.5 g/dL (3.4-5.0); Albumin/Globulin Ratio 1.3 (0.8-1.8); Anion Gap 9.0 mmol/L (3-11); Aspartate Aminotrans (AST/SGOT 17.0 U/L (12-37); Bilirubin, Total 0.5 mg/dL (0.1-1.0); Blood Urea Nitrogen 31.0 mg/dL (8-24); CO2, Blood 23.0 mmol/L (21-32); Calcium, Blood 8.7 mg/dL (8.5-10.1); Chloride, Blood 105.0 mmol/L (98-108); Creatinine, Blood 0.79 mg/dL (0.60-1.20); Globulin, Blood 2.7 g/dL (2.2-4.0); Glucose, Blood 230.0 mg/dL (70-99); Potassium, Blood 4.3 mmol/L (3.5-5.5); Sodium, Blood 133.0 mmol/L (136-145); Total Protein, Blood 6.2 g/dL (6.4-8.2)
[2024-10-09] MEDS ORDERED: Insulin Human Lispro 100 Units/ML 3ML Syringe SC SCH ×2 (07:30)
[2024-10-09] MEDS ORDERED: Chlorhexidine Mouth Care 15 ML UDC MT SCH (09:50)
[2024-10-09] MEDS ORDERED: CeFAZolin Sodium 2,000 MG in NS 100 ML IV SCH (09:50)
[2024-10-09] MEDS ORDERED: Ropivacaine 0.5% HCl/Pf 123.125 MG,EPINEPHrine HCL 0.25 MG,Ketorolac Tromethamine 15 MG... INFIL SCH (09:50)
[2024-10-09] MEDS ORDERED: Tranexamic Acid 100 ML IV SCH (09:50)
[2024-10-09] MEDS ORDERED: FentaNYL Citrate 50 MCG/ML 2 ML Injection ONE ×2 (13:08→15:28)
[2024-10-09] MEDS ORDERED: Rocuronium Bromide 10 MG/ML 5ML Injection IV ONE (13:10)
[2024-10-09] MEDS ORDERED: Phenylephrine HCl 100 MCG/ML-NS 10MLSYR (1MG/10ML) ONE ×2 (13:19→13:50)
--- NOTE | 2024-10-09 13:30 | NUR ---
PT WITH SURGERY NURSES AROUND ~1250
[2024-10-09] MEDS ORDERED: Sugammadex Sodium 200 MG/2ML SDV (100 MG/ML) ONE (15:05)
[2024-10-09] MEDS ORDERED: HYDROmorphone HCl/Pf 1MG SYR ONE (15:37)
[2024-10-09] MEDS ORDERED: Ketorolac Tromethamine 30mg Vial ONE (15:53)
--- NOTE | 2024-10-09 16:40 | NUR ---
PT TO UNIT FROM SURGERY @8230. AXO4. VSS. FAMILY AT BEDSIDE. MEDS PER EMAR FOR NAUSEA/PAIN.
--- NOTE | 2024-10-09 17:51 | NUR ---
SUMMARY STARTED SHIFT AXO4. NPO. PAIN PRESENT TO R LEG BUT PT DENYING NEED FOR PAIN MEDS. SEE POSTOP NOTE. PT WAS IN SURGERY FOR MAJORITY OF THE DAY. ARRIVED TO UNIT C/O PAIN/NAUSEA - MEDS PER EMAR. R LEG SPLINTED PRE OP AND POSTOP, SENSATION CAP REFILL WNL TO R LEG. TXA INFUSED. FLUIDS INFUSING. HOME CPAP AT BEDSIDE. VSS STABLE POSTOP CURRENTLY. OTHERWISE, PT RESTING POSTOP - VISITING FAMILY. FOLLOWING [facility]B PRECAUTIONS AT THIS TIME. CALL LIGHT WITHIN REACH.
[2024-10-10 04:41] VITALS: BP 108/83
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
[2024-10-10 07:21] VITALS: BP 117/68
[2024-10-10 10:42] LABS: BASOPHILS ABSOLUTE AUTO 0.06 K/mm3 (0.00-0.23); BASOPHILS PERCENT AUTO 1 % (0-2); EOSINOPHILS ABSOLUTE AUTO 0.13 K/mm3 (0.00-0.68); EOSINOPHILS PERCENT AUTO 2 % (0-6); Hematocrit 35.3 % (37.0-53.0); Hemoglobin 12.0 g/dL (13.5-17.5); IMMATURE GRAN ABSOLUTE AUTO 0.05 K/mm3 (0.00-0.10); IMMATURE GRAN PERCENT AUTO 1 % (0-1); LYMPHOCYTES ABSOLUTE AUTO 1.13 K/mm3 (0.84-5.20); LYMPHOCYTES PERCENT AUTO 14 % (21-46); MONOCYTES ABSOLUTE AUTO 0.89 K/mm3 (0.16-1.47); MONOCYTES PERCENT AUTO 11 % (4-13); Mean Corpuscular HGB Conc 34.0 g/dL (31.5-36.5); Mean Corpuscular Volume 96 fL (80-100); NEUTROPHILS ABSOLUTE AUTO 5.60 K/mm3 (1.96-9.15); NEUTROPHILS PERCENT AUTO 71 % (41-73); NRBC ABSOLUTE 0.00 K/mm3 (0.00-0.02); NRBC Auto 0.0 /100 WBC (0.0-0.2); Platelet Count 152 K/mm3 (150-400); RDW Coefficient Variation 14.1 % (11.7-14.2); RDW Standard Deviation 49.8 fL (35.1-46.3)
[2024-10-10 11:09] LABS: Anion Gap 9.0 mmol/L (3-11); Blood Urea Nitrogen 19.0 mg/dL (8-24); CO2, Blood 25.0 mmol/L (21-32); Calcium, Blood 7.8 mg/dL (8.5-10.1); Chloride, Blood 105.0 mmol/L (98-108); Creatinine, Blood 0.77 mg/dL (0.60-1.20); Glucose, Blood 265.0 mg/dL (70-99); Potassium, Blood 4.5 mmol/L (3.5-5.5); Sodium, Blood 134.0 mmol/L (136-145)
[2024-10-10] MEDS ORDERED: OXAYDO5 M1 PO (15:37)
[2024-10-10 15:41] VITALS: BP 115/64
[2024-10-10] MEDS ORDERED: Insulin Regular 100 UNIT/ML 10ML Vial SC SCH (16:30)
--- NOTE | 2024-10-10 16:54 | NUR ---
SHIFT SUMMARY POD 1 R TIBIA RODDING PT ABLE TO WORK WITH THERAPY. INCREASE IN PAIN AFTER WORKING WITH THERAPY. PT REMAINS CONCERNED AFTER FEELING "POP" IN KNEE EARLY THIS MORNING. CALLS APPROPRIATLY. PLAN IS TO DISCHARGE TOMORROW MORNING. SO PATIENT CAN ATTENDING RADIOLOGIST MEDICATIONS.
[2024-10-10 20:08] VITALS: BP 131/73
[2024-10-10 23:37] VITALS: BP 118/64
[2024-10-11 04:49] LABS: BASOPHILS ABSOLUTE AUTO 0.07 K/mm3 (0.00-0.23); BASOPHILS PERCENT AUTO 1 % (0-2); EOSINOPHILS ABSOLUTE AUTO 0.12 K/mm3 (0.00-0.68); EOSINOPHILS PERCENT AUTO 2 % (0-6); Hematocrit 36.8 % (37.0-53.0); Hemoglobin 12.5 g/dL (13.5-17.5); IMMATURE GRAN ABSOLUTE AUTO 0.04 K/mm3 (0.00-0.10); IMMATURE GRAN PERCENT AUTO 1 % (0-1); LYMPHOCYTES ABSOLUTE AUTO 1.42 K/mm3 (0.84-5.20); LYMPHOCYTES PERCENT AUTO 19 % (21-46); MONOCYTES ABSOLUTE AUTO 0.94 K/mm3 (0.16-1.47); MONOCYTES PERCENT AUTO 13 % (4-13); Mean Corpuscular HGB Conc 34.0 g/dL (31.5-36.5); Mean Corpuscular Volume 96 fL (80-100); NEUTROPHILS ABSOLUTE AUTO 4.84 K/mm3 (1.96-9.15); NEUTROPHILS PERCENT AUTO 65 % (41-73); NRBC ABSOLUTE 0.00 K/mm3 (0.00-0.02); NRBC Auto 0.0 /100 WBC (0.0-0.2); Platelet Count 154 K/mm3 (150-400); RDW Coefficient Variation 13.8 % (11.7-14.2); RDW Standard Deviation 48.5 fL (35.1-46.3)
--- NOTE | 2024-10-11 04:52 | NUR ---
INSTRUMENT REPAIR SUPERVISOR SUMMARY POD 1, RLE IN HARD SPLINT WITH MARGARITA WRAP. NO DRAINAGE NOTED. PT ABLE TO WIGGLE TOES AND HAS GOOD PEDAL PULSES. PT DOES COMPLAIN OF WHAT HE DESCRIBES "SOME RUBBING" ABOVE HIS L HEEL UNDER THE SPLINT AND MARGARITA WRAP. ATTEMPTED TO PLACE PILLOW UNDER LEG IN A WAY TO REMOVE EXTRA PRESSURE FROM AREA. PAIN MANAGED WITH PRN OXYCODONE 10 MG. PT WAITING FOR PROPER EQUIPMENT TO BE DELIVERED TO HIS HOUSE FOR SAFE DISCHARGE. RAJINDER, HERMELINDA.
[2024-10-11 05:08] VITALS: BP 117/100
[2024-10-11 05:10] LABS: Anion Gap 10.0 mmol/L (3-11); Blood Urea Nitrogen 16.0 mg/dL (8-24); CO2, Blood 23.0 mmol/L (21-32); Calcium, Blood 8.0 mg/dL (8.5-10.1); Chloride, Blood 106.0 mmol/L (98-108); Creatinine, Blood 0.66 mg/dL (0.60-1.20); Glucose, Blood 170.0 mg/dL (70-99); Potassium, Blood 4.1 mmol/L (3.5-5.5); Sodium, Blood 135.0 mmol/L (136-145)
[2024-10-11 07:36] VITALS: BP 103/49
[2024-10-11 15:52] VITALS: BP 122/69
--- NOTE | 2024-10-11 16:09 | NUR ---
DISCHARGE NOTE PT IS A/OX4. VSS. AMBULATING W/ FWW AND GB. [facility] [employer] SUPPLY DROPPED OFF APPROPRIATE WALKER FOR DC. POD2 INTRAMEDULLARY RODDING TIBIA. PT TOLERATING PO INTAKE AND VOIDING WELL. ABLE TO MAKE NEEDS KNOWN. PT VERBALIZED UNDERSTANDING OF DC EDUCATION. STATES NO QUESTIONS AT THIS TIME. IV REMOVED, PERSONAL BELONGINGS TAKEN W/ PATIENT. ESCORTED OUT VIA WC.
== END 2024-10-11 16:28 | disposition home health service (06) | DRG 494 ==
LOC: ER 20:41 → SURS 10-09 00:23 → ER 10-09 00:34 → SURS 10-09 00:49
PROVIDERS: Family Medicine; Internal Medicine; Orthopaedic Surgery; Student in an Organized Health Care Education/Training Program; ADMIT Internal Medicine
PROC: 0QSJ34Z Reposition Right Fibula with Internal Fixation Device, Percutaneous Approach (ICD-10-PCS; 2024-10-09)
PROC: 5A09357 Assistance with Respiratory Ventilation, Less than 24 Consecutive Hours, Continuous Positive Airway Pressure (ICD-10-PCS; 2024-10-09)
PROC: 0QSG36Z Reposition Right Tibia with Intramedullary Internal Fixation Device, Percutaneous Approach (ICD-10-PCS; principal; 2024-10-09 13:00)
DX: S82.251A Displaced comminuted fracture of shaft of right tibia, initial encounter for closed fracture (principal); S82.451A Displaced comminuted fracture of shaft of right fibula, initial encounter for closed fracture; E11.9 Type 2 diabetes mellitus without complications; M32.9 Systemic lupus erythematosus, unspecified; E78.5 Hyperlipidemia, unspecified; E11.42 Type 2 diabetes mellitus with diabetic polyneuropathy; G47.33 Obstructive sleep apnea (adult) (pediatric); I25.10 Atherosclerotic heart disease of native coronary artery without angina pectoris; D64.9 Anemia, unspecified; Z86.718 Personal history of other venous thrombosis and embolism; Z79.84 Long term (current) use of oral hypoglycemic drugs; Z79.899 Other long term (current) drug therapy; Z79.02 Long term (current) use of antithrombotics/antiplatelets; Z79.85 Long-term (current) use of injectable non-insulin antidiabetic drugs; Z95.0 Presence of cardiac pacemaker; Z98.890 Other specified postprocedural states; V29.99XA Rider (driver) (passenger) of other motorcycle injured in unspecified traffic accident, initial encounter
CPT/HCPCS: 36415; 73590; 80048; 80053; 82947; 83880; 85025; 86850; 86900; 86901; 94660; 94762; 96360; 97116; 97162; 97530; 99284-25; A9270; C1713; C1769; J0690; J1171; J1815; J1885; J2270; J2371; J2405; J2704; J3010; J7030

== ENCOUNTER 2024-10-12 13:34 | Observation (INO) | payer OTHER ==
[~2024-10-12] VITALS: Ht 190.5 cm; Wt 115.0 kg
[~2024-10-12 13:34] MED LIST changes: +ASPI325 PO; +BASAGLAR K100 UNIT/8; +LOSA50; +OLMESARTAN MEDO40 MG PO; +OXAYDO5 M1 PO; +OZEMPIC0.25 MG/02; +SYNJARDY XR 251 EAC1 PO
[2024-10-12] MEDS ORDERED: Insulin Glargine,Hum.Rec.Anlog 100 UNIT/ML 3MLSYR SC SCH (21:00)
[2024-10-13] MEDS ORDERED: MetFORMIN HCl 500 mg PO SCH (09:00)
[2024-10-13] MEDS ORDERED: Insulin Regular 100 UNIT/ML 10ML Vial SC SCH (16:30)
[2024-10-13 18:11] VITALS: BP 142/87
--- NOTE | 2024-10-13 18:18 | NUR ---
ADMISSION NOTE: PATIENT ARRIVED TO THE UNIT VIA GURNEY WAS ABLE TO STAND PIVOT TRANSFER WITH ASSISTANCE TO THE BED. SOFT CAST/DRESSING IN PLACE UP TO KNEE ON THE RIGHT. PATIENT'S AT BEDSIDE, SETTLED IN ROOM, CALL LIGHT PROVIDED, NO SIGNS OR SYMPTOMS OF DISTRESS, PLAN OF CARE ONGOING.
[2024-10-13 19:25] VITALS: BP 118/68
[2024-10-14 03:54] VITALS: BP 113/69
--- NOTE | 2024-10-14 04:12 | NUR ---
SHIFT SUMMARY PATIENT HAD NO ACUTE CHANGES. ALERT ORIENTED AND STAND PIVOT/SLIDE TO W/C FROM BED WITH ASSIST. DENIES CHEST PAIN, SOB, AND N/V. VSS/AFEBRILE. REPORTED LEG PAIN X ONE AND OXYCODONE 5 MG GIVEN PER EMAR. CBG 191. NO IV ACCESS. USES CPAP AT NIGHT. CALL LIGHT IN REACH. BED IN LOWEST POSITION. WILL CONTINUE TO MONITOR UNTIL DAY SHIFT NURSE ASSUMES CARE.
[2024-10-14 05:58] LABS: BASOPHILS ABSOLUTE AUTO 0.09 K/mm3 (0.00-0.23); BASOPHILS PERCENT AUTO 1 % (0-2); EOSINOPHILS ABSOLUTE AUTO 0.17 K/mm3 (0.00-0.68); EOSINOPHILS PERCENT AUTO 2 % (0-6); Hematocrit 36.5 % (37.0-53.0); Hemoglobin 12.4 g/dL (13.5-17.5); IMMATURE GRAN ABSOLUTE AUTO 0.07 K/mm3 (0.00-0.10); IMMATURE GRAN PERCENT AUTO 1 % (0-1); LYMPHOCYTES ABSOLUTE AUTO 1.27 K/mm3 (0.84-5.20); LYMPHOCYTES PERCENT AUTO 16 % (21-46); MONOCYTES ABSOLUTE AUTO 0.86 K/mm3 (0.16-1.47); MONOCYTES PERCENT AUTO 11 % (4-13); Mean Corpuscular HGB Conc 34.0 g/dL (31.5-36.5); Mean Corpuscular Volume 96 fL (80-100); NEUTROPHILS ABSOLUTE AUTO 5.29 K/mm3 (1.96-9.15); NEUTROPHILS PERCENT AUTO 68 % (41-73); NRBC ABSOLUTE 0.00 K/mm3 (0.00-0.02); NRBC Auto 0.0 /100 WBC (0.0-0.2); Platelet Count 215 K/mm3 (150-400); RDW Coefficient Variation 13.9 % (11.7-14.2); RDW Standard Deviation 48.7 fL (35.1-46.3)
[2024-10-14 06:37] LABS: Anion Gap 11.0 mmol/L (3-11); Blood Urea Nitrogen 17.0 mg/dL (8-24); CO2, Blood 23.0 mmol/L (21-32); Calcium, Blood 8.3 mg/dL (8.5-10.1); Chloride, Blood 106.0 mmol/L (98-108); Creatinine, Blood 0.59 mg/dL (0.60-1.20); Glucose, Blood 125.0 mg/dL (70-99); Potassium, Blood 3.9 mmol/L (3.5-5.5); Sodium, Blood 136.0 mmol/L (136-145)
[2024-10-14 07:33] VITALS: BP 120/67
[2024-10-14] MEDS ORDERED: Enoxaparin 40 MG/0.4 ML SYR SC SCH (09:00)
[2024-10-14 14:47] VITALS: BP 125/75
--- NOTE | 2024-10-14 16:42 | NUR ---
SHIFT SUMMARY: NO EVENTS OR CHANGES WITH THE PATIENT THROUGHOUT THE SHIFT. HE WORKED WITH PT AND OT. HE HAS BEEN USING A WHEELCHAIR TO GO TO THE RESTROOM AND BACK. WAITING FOR DR. DIALLO TO COME SEE THE PATIENT TO EVALUATE HIS R LEG/ANKLE. PATIENT IN BED, ALERT, NO SIGNS OR SYMPTOMS OF DISTRESS, PLAN OF CARE ONGOING.
--- NOTE | 2024-10-14 17:56 | NUR ---
REMINDER CALL MADE TO DR. DIALLO. HE STATES THAT HE WILL TRY AND SEE THE PATIENT TOMORROW OR THIS WEEKEND. GAVE PERMISSION TO UNDO PATIENT'S DRESSING AND ASSESS SKIN.
[2024-10-14 19:19] VITALS: BP 141/80
--- NOTE | 2024-10-14 19:28 | NUR ---
DRESSING/SPLINT REMOVED; ASSESSED;PHOTOS OBTAINED AND REDRESSED
[2024-10-14] MEDS ORDERED: MIRALAX17 GM PO (19:58)
[2024-10-14] MEDS ORDERED: Magnesium Hydroxide Conc 10 ML UDC PO ONE (20:35)
[2024-10-15 04:13] VITALS: BP 113/66
--- NOTE | 2024-10-15 05:27 | NUR ---
SHIFT SUMMARY NOC PT A/O X 4. PLEASANT AND COOPERATIVE WITH CARE. VSS. HS CBG 186 WITH 20 UNITS SCHEDULED BASAGLAR GIVEN PER EMAR. PT HAD DRESSING ON RLE CHANGED BY DAY RN YESTERDAY TO SURGEON COULD SEE IT, BUT NEVER CAME TO FLOOR. PT HAS [address] PT REPORTED 5/10 PAIN AND GIVEN PAIN RX. PT STATED THAT THEY ARE LIKELY TO DECLINE SNF PLACEMENT AND PREFERS HOME HEALTH [facility]. PT HAD C/O OF CONSTIPATION AND REPORTED LAST BM 10/13/24 AND IT WAS SMALL AND HAD NOT HAD ONE IN PREVIOUS 6 DAYS. HOSPIALIST NOTIFIED AND ONE TIME ORDER FOR MOM GIVEN. PT IS NWB ON RLE AND IS ABLE TO SLIDE TRANSFER FROM BED TO WC TO USE BATHROOM. PT CURRENTLY RESTING WITH BED IN LOWEST POSITION, AND CALL LIGHT WITHIN REACH.
[2024-10-15 07:55] VITALS: BP 119/72
[2024-10-15 15:35] VITALS: BP 88/55
[2024-10-15 15:42] VITALS: BP 110/98
--- NOTE | 2024-10-15 19:47 | NUR ---
SHIFT SUMMARY PT CONT LEVEL OF CARE WITH NO ACUTE CHANGES NOTED. CONT TO AWAIT SNF PLACEMENT. PT DID NOTE TO HAVE A BM THIS SHIFT.
[2024-10-15 20:14] VITALS: BP 106/58
[2024-10-16 04:13] VITALS: BP 111/71
--- NOTE | 2024-10-16 05:04 | NUR ---
SHIFT SUMMARY NOC PT A/O X 4. PLEASANT AND COOPERATIVE WITH CARE. VSS. CBG 229 WITH 2O UNITS LONG ACTING INSULIN GIVENT PER EMAR. RLE STILL HAS SOFT CAST IN PLACE C/D/I. PAIN BEING MANAGED PER EMAR. PT USING HOME CPAP FOR SLEEP. PT CURRENTLY RESTING WITH BED IN LOWEST POSITION, AND CALL LIGHT WITHIN REACH.
[2024-10-16 07:22] VITALS: BP 116/68
[2024-10-16 15:24] VITALS: BP 109/66
--- NOTE | 2024-10-16 18:31 | NUR ---
SHIFT SUMMARY PT CONT LEVEL OF CARE. PT VOICED C/O OF INCREASE PAIN TO R KNEE. CONSULT PLACED FOR ORTHO AND XRAY OF R KNEE. ORTHO STATED THERE WHERE NO CHANGES TO XRAY AND NO INTERVENTIONS AT THIS TIME.
[2024-10-16 19:30] VITALS: BP 112/73
[2024-10-17 03:27] VITALS: BP 101/56
[2024-10-17 07:56] VITALS: BP 115/70
[2024-10-17] MEDS ORDERED: HUMULIN R100 UNIT/2 (13:45)
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
[2024-10-17 19:35] VITALS: BP 115/66
[2024-10-18 04:28] VITALS: BP 107/72
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
[2024-10-18 06:55] LABS: BASOPHILS ABSOLUTE AUTO 0.10 K/mm3 (0.00-0.23); BASOPHILS PERCENT AUTO 1 % (0-2); EOSINOPHILS ABSOLUTE AUTO 0.16 K/mm3 (0.00-0.68); EOSINOPHILS PERCENT AUTO 2 % (0-6); Hematocrit 39.0 % (37.0-53.0); Hemoglobin 13.2 g/dL (13.5-17.5); IMMATURE GRAN ABSOLUTE AUTO 0.13 K/mm3 (0.00-0.10); IMMATURE GRAN PERCENT AUTO 2 % (0-1); LYMPHOCYTES ABSOLUTE AUTO 1.54 K/mm3 (0.84-5.20); LYMPHOCYTES PERCENT AUTO 22 % (21-46); MONOCYTES ABSOLUTE AUTO 0.83 K/mm3 (0.16-1.47); MONOCYTES PERCENT AUTO 12 % (4-13); Mean Corpuscular HGB Conc 33.8 g/dL (31.5-36.5); Mean Corpuscular Volume 96 fL (80-100); NEUTROPHILS ABSOLUTE AUTO 4.30 K/mm3 (1.96-9.15); NEUTROPHILS PERCENT AUTO 61 % (41-73); NRBC ABSOLUTE 0.00 K/mm3 (0.00-0.02); NRBC Auto 0.0 /100 WBC (0.0-0.2); Platelet Count 246 K/mm3 (150-400); RDW Coefficient Variation 13.8 % (11.7-14.2); RDW Standard Deviation 47.8 fL (35.1-46.3)
[2024-10-18 07:10] LABS: Anion Gap 9.0 mmol/L (3-11); Blood Urea Nitrogen 21.0 mg/dL (8-24); CO2, Blood 25.0 mmol/L (21-32); Calcium, Blood 8.7 mg/dL (8.5-10.1); Chloride, Blood 106.0 mmol/L (98-108); Creatinine, Blood 0.64 mg/dL (0.60-1.20); Glucose, Blood 202.0 mg/dL (70-99); Potassium, Blood 4.0 mmol/L (3.5-5.5); Sodium, Blood 136.0 mmol/L (136-145)
[2024-10-18 07:39] VITALS: BP 105/62
[2024-10-18 14:58] VITALS: BP 97/56
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
[2024-10-18 18:20] VITALS: BP 101/63
[2024-10-18 19:32] VITALS: BP 125/67
[2024-10-19 02:41] VITALS: BP 135/78
--- NOTE | 2024-10-19 03:55 | NUR ---
SHIFT SUMMARY ADMITTED FOR RIGHT ANKLE FRACTURE. STATUS POST REPAIR. FULL CODE. PLAN IS FOR SNF REHAB PLACEMENT. ORTHO CONSULT IS DR. DIALLO. ON RA, CARDIAC DIET. ACHS CBG'S - LOW SS. PAIN MEDICATION GIVEN THIS SHIFT. A&O X4. 1 ASSIST TO WC. PACEMAKER IN PLACE. CAST IN PLACE ON RIGHT FOOT.
[2024-10-19 07:39] VITALS: BP 112/74
[2024-10-19 09:08] VITALS: BP 112/68
--- NOTE | 2024-10-19 12:53 | NUR ---
DISCHARGE NOTE PT D/C'D TO SNF AT 1230. PT A/OX4. VSS. AMBULATES WITH ASSISTANCE, TOLERATING PO DIET, VOIDING, AND PAIN MANAGED PER EMAR. BELONGINGS WERE RETURNED TO PT. DISCHARGED PACKET GIVEN TO TRANSPORT. HARD SCRIPT INSIDE DISCAHRGE PACKET. PT ESCORTED OUT BY TRANSPORT. THIS RN CALLED [facility] TO GIVE REPORT. REPORT GIVEN TO KARLA PIKE.
== END 2024-10-19 12:36 ==
LOC: ER 13:34 → MEDS 13:35 → ERHOLD 13:35 → MEDS 10-13 18:00
PROVIDERS: Internal Medicine; ADMIT Family Medicine
DX: M25.561 Pain in right knee (principal); G89.29 Other chronic pain; R62.7 Adult failure to thrive; S82.831D Other fracture of upper and lower end of right fibula, subsequent encounter for closed fracture with routine healing; X58.XXXD Exposure to other specified factors, subsequent encounter; I10 Essential (primary) hypertension; E11.42 Type 2 diabetes mellitus with diabetic polyneuropathy; M32.9 Systemic lupus erythematosus, unspecified; R26.89 Other abnormalities of gait and mobility; E78.5 Hyperlipidemia, unspecified; D64.9 Anemia, unspecified; Z68.31 Body mass index [BMI] 31.0-31.9, adult; Z79.82 Long term (current) use of aspirin; Z79.4 Long term (current) use of insulin; Z79.899 Other long term (current) drug therapy; Z95.0 Presence of cardiac pacemaker; Z86.79 Personal history of other diseases of the circulatory system
CPT/HCPCS: 36415; 73562-RT; 73590; 80048; 82947; 85025; 94762; 96372; 97110; 97116; 97162; 97165; 97530; 97535; 99285-25; A9270; G0378; J1650; J1815